=== PATIENT | female | born 1965 | race Caucasian/White ===

== ENCOUNTER 2016-10-07 16:29 | Emergency (ER) | payer BC ==
[~2016-10-07] VITALS: Ht 175.3 cm; Wt 73.1 kg
[~2016-10-07 16:29] MED LIST: LEVA500T33 PO; LORT7.5T3 PO; VESI5TAB PO; Z.0.BCPILL
[2016-10-07 16:39] VITALS: BP 130/65; PULSE 90; RESP 16; TEMP 100.7; O2SAT 99
[2016-10-07] MEDS ORDERED: HYDR12.56 PO (17:08)
[2016-10-07] MEDS ORDERED: LISI10TA3 PO (17:08)
[2016-10-07] MEDS ORDERED: birth control (17:08)
[2016-10-07] MEDS ORDERED: SODIUM CHLORIDE 0.9% FLUSH 10 ML FLUSH IVF PRN (17:45)
[2016-10-07] MEDS ORDERED: RESP: ALBUTEROL 2.5 MG/IPRATROPIUM 0.5 MG NEB (SCH) INH ONE (17:45)
[2016-10-07] MEDS ORDERED: SODIUM CHLOR 0.9% 1000 ML INJ 1,000 ML IV ONE (17:45)
--- NOTE | 2016-10-07 18:13 | RADRPT ---
EXAM DATE/TIME: 10/07/2016 17:56 [place] COMPARISON: CHEST PA & LAT, December 15, 2010, 22:45. INDICATIONS : Chest pain. MEDICAL HISTORY : None. SURGICAL HISTORY : None. ENCOUNTER: Initial ACUITY: 1 day PAIN SCORE: 5/10 LOCATION: Bilateral chest FINDINGS: PA and lateral views of the chest show an infiltrate within the medial segment of the right middle lo be. The remaining lungs are clear. No effusions. Heart normal size. Mild scoliotic curvature. CONCLUSION: 1. Right middle lobe infiltrate. Truong Curran Jr., MD on October 07, 2016 at 18:10 Board Certified Radiologist. This report was verified electronically.
[2016-10-07 18:18] LABS: CHLORIDE 102 MEQ/L (98-107); POTASSIUM 4.3 MEQ/L (3.5-5.1); SODIUM (NA) 135 MEQ/L (136-145)
[2016-10-07 18:23] LABS: ANION GAP 9 MEQ/L (5-15); BICARBONATE 23.8 MEQ/L (21.0-32.0); BLOOD UREA NITROGEN 17 MG/DL (7-18)
--- NOTE | 2016-10-07 18:24 | PD ---
HPI Chief Complaint: Respiratory Symptoms Time Seen by Provider: 17:18 Travel History International Travel<30 days: No Contact w/Intl Traveler<30days: No Traveled to known affect area: No History of Present Illness HPI The patient's 51 years old. She reports driving home from [place] several days ago. She felt very fatigued working overnight day of her arrival here. Total body aches and pains are reported. Occasional cough is reported. Rhinorrhea is reported. She denies sick contacts. No rash. No nausea vomiting reported. The patient has right lower chest pain without pleuritic component. It radiates from the posterior thorax in the right upper quadrant. PFSH Past Medical History Diminished Hearing: No Hypertension: Yes Immunizations Current: No Tetanus Vaccination: Unknown Influenza Vaccination: No ?: Not LMP: 09/21/16 Menopausal: Yes Past Surgical History Surgical History: No Previous Surgery Social History Alcohol Use: Yes ([place]) Tobacco Use: No Substance Use: No Allergies-Medications (Allergen,Severity, Reaction): Coded Allergies: No Known Allergies (Verified , 12/15/10) Reported Meds & Prescriptions Reported Meds & Active Scripts Active Proair Hfa 8.5 GM Inh (Albuterol Sulfate) 90 Mcg/Act Aer 2 Puff INH Q6H PRN 108 mcg/actuation Azithromycin 250 Mg Tab 250 Mg PO DIRECTED Take 2 tabs (500 mg) on day 1 then 1 tab daily x 4 days. Reported [ control] Hydrochlorothiazide 12.5 Mg Tab 12.5 Mg PO DAILY Lisinopril 10 Mg Tab 10 Mg PO DAILY Review of Systems Except as stated in HPI: all other systems reviewed are Neg Physical Exam Narrative GENERAL: 51-year-old female well-nourished male no acute distress SKIN: Warm and dry. HEAD: Atraumatic. Normocephalic. EYES: Pupils equal and round. No scleral icterus. No injection or drainage. ENT: No nasal bleeding or discharge. Mucous membranes pink and moist. NECK: Trachea midline. No JVD. CARDIOVASCULAR: Regular rate and rhythm. RESPIRATORY: No accessory muscle use. Clear to auscultation. Breath sounds equal bilaterally. GASTROINTESTINAL: Abdomen soft, non-tender, nondistended. Hepatic and splenic margins not palpable. MUSCULOSKELETAL: Extremities without clubbing, cyanosis, or edema. No obvious deformities. NEUROLOGICAL: Awake and alert. No obvious cranial nerve deficits. Motor grossly within normal limits. Five out of 5 muscle strength in the arms and legs. Normal speech. PSYCHIATRIC: Appropriate mood and affect; insight and judgment normal. Data Data Last Documented VS Vital Signs Date Time Temp Pulse Resp B/P (MAP) Pulse Ox O2 Delivery O2 Flow Rate FiO2 10/07/16 19:12 89 18 147/62 (90) 100 10/07/16 16:39 100.7 Vital signs reviewed Orders Orders Basic Metabolic Panel (Bmp) (10/07/16 17:35) Comprehensive Metabolic Panel (10/07/16 17:35) Chest, Pa & Lat (10/07/16 17:35) Ecg Monitoring (10/07/16 17:35) Iv Access Insert/Monitor (10/07/16 17:35) Oximetry (10/07/16 17:35) Sodium Chloride 0.9% Flush (Ns Flush) (10/07/16 17:45) Sodium Chlor 0.9% 1000 Ml Inj (Ns 1000 M (10/07/16 17:45) Influenzae A/B Antigen (10/07/16 17:35) Albuterol-Ipratropium Neb (Duoneb Neb) (10/07/16 17:45) Dexamethasone Inj (Decadron Inj) (10/07/16 19:15) Labs Laboratory Tests Test 10/07/16 17:45 Blood Urea Nitrogen 17 MG/DL Creatinine 0.86 MG/DL Random Glucose 91 MG/DL Total Protein 7.3 GM/DL Albumin 3.2 GM/DL Calcium Level 8.6 MG/DL Alkaline Phosphatase 58 U/L Aspartate Amino Transf (AST/SGOT) 27 U/L Alanine Aminotransferase (ALT/SGPT) 33 U/L Total Bilirubin 1.2 MG/DL Sodium Level 135 MEQ/L Potassium Level 4.3 MEQ/L Chloride Level 102 MEQ/L Carbon Dioxide Level 23.8 MEQ/L Anion Gap 9 MEQ/L Estimat Glomerular Filtration Rate 70 ML/MIN MDM Medical Decision Making Medical Screen Exam Complete: Yes Emergency Medical Condition: Yes Medical Record Reviewed: Yes Differential Diagnosis Pneumonia, PE, influenza, [place] spotted fever Narrative Course CBC & BMP Diagram 10/07/16 17:45 Total Protein 7.3, Albumin 3.2 L, Calcium Level 8.6, Alkaline Phosphatase 58, Aspartate Amino Transf (AST/SGOT) 27, Alanine Aminotransferase (ALT/SGPT) 33, Total Bilirubin 1.2 H There is a right lung pneumonia Patient will go home with azithromycin. Diagnosis Primary Impression: Fever Qualified Codes: R50.9 - Fever, unspecified Additional Impressions: Cough Chest pain Qualified Codes: R07.9 - Chest pain, unspecified Referrals: Primary Care Physician 2 days Additional Instructions: You have a choice when it comes to health care, and we are glad that you chose [facility]. Hopefully, we have met your expectations on today's visit. You are welcome to return to [email or web address] at any time, as we are committed to meeting the health care needs of our community. Med/Other Pt SpecificInfo: Prescription(s) given Scripts Albuterol 8.5 GM Inh (Proair Hfa 8.5 GM Inh) 90 Mcg/Act Aer 2 PUFF INH Q6H Y for SHORTNESS OF BREATH, #1 INHALER 0 Refills 108 mcg/actuation Prov: Damian Mcclure MD 10/07/16 Azithromycin (Azithromycin) 250 Mg Tab 250 MG PO DIRECTED for Infection, #6 TAB 0 Refills Take 2 tabs (500 mg) on day 1 then 1 tab daily x 4 days. Prov: Damian Mcclure MD 10/07/16 Disposition: 01 DISCHARGE HOME Condition: Stable Damian Mcclure MD Oct 07, 2016 18:24
[2016-10-07 18:25] VITALS: O2SAT 100
[2016-10-07 18:26] LABS: ALT (GPT) 33 U/L (10-53); AST (GOT) 27 U/L (15-37); GLOMERULAR FILTRATION RATE 70 ML/MIN (>89)
[2016-10-07 18:27] LABS: TOTAL BILIRUBIN ADULT 1.2 MG/DL (0.2-1.0)
[2016-10-07 18:29] LABS: ALKALINE PHOSPHATASE 58 U/L (45-117)
[2016-10-07] MEDS ORDERED: ALBUAER3 INH (18:56)
[2016-10-07] MEDS ORDERED: AZIT250T3 PO (18:56)
[2016-10-07 19:12] VITALS: BP 147/62
[2016-10-07] MEDS ORDERED: DEXAMETHASONE SOD PHOS 4 MG/ML VIAL IV PUSH ONE (19:15)
== END 2016-10-07 19:30 | disposition home or self-care (01) ==
LOC: PHED 16:29
DX: R50.9 Fever, unspecified (principal); R05 Cough; R07.9 Chest pain, unspecified; I10 Essential (primary) hypertension
CPT/HCPCS: 71020; 80053; 87804; 94664; 96361; 96374; 99285; J1100; J7030